=== PATIENT | male | born 1950 | race African-American/Black ===

== ENCOUNTER 2017-02-03 18:10 | Inpatient (IN) | payer MEDICARE, OTHER ==
[~2017-02-03] VITALS: Ht 170.2 cm; Wt 64.4 kg
[2017-02-03] VITALS (7 sets, daily range): BP systolic 121–142; BP diastolic 58–70; BMI 22.3
--- NOTE | ~2017-02-03 | CN ---
PATIENT NAME:ALIYA HEMPHILL MEDICAL RECORD: [id number] : 46 LOCATION:D.MS [id number] ADMIT DATE: 02/03/17 ACCOUNT: [id number] CONSULTING PHYSICIAN: MCKENZIE YORK MD REFERRING PHYSICIAN: TELLO PRO MD DATE OF CONSULTATION: 02/04/2017 Gastroenterology Consultation REFERRING PHYSICIAN: Nikolay Carranza DO HISTORY OF PRESENT ILLNESS: The patient is a 66-year-old black male with a history of severe peripheral vascular disease, status post recent PTCA with stent placement in November of this year on Effient and aspirin, who basically was admitted with acute hematochezia and [id number]-lmypkrv anemia with hematocrit just dropping down to 24 on admission. His baseline hematocrit is around 30-32. He has seen Dr. Do for years for chronic anemia. I actually saw this man for anemia issues back a couple years ago as well. His endoscopy workup a couple of years ago included an EGD, which was normal and a colonoscopy which was also normal, other than a diminutive polyp, which was removed. He had another EGD a little before that that revealed grade II esophagitis, possibly due to reflux disease. I have not seen him since. The patient denies any abdominal pain, has not had any further bleeding. PAST MEDICAL HISTORY: As above. He also has COPD, diabetes, depression, BPH, and hypertension. PAST SURGICAL HISTORY: Remarkable for PTCA with multiple stent placements in his legs. He also has had a TURP and his endoscopy as noted above. He has also had back surgery. HOME MEDICATIONS: Include lisinopril, aspirin 325 mg daily, HCTZ, Protonix 40 mg daily, Effient, iron sulfate, DiaBeta, Glucophage, Lasix, Cymbalta, Lopressor, Remeron, Carafate and [place]. REVIEW OF SYSTEMS: Noncontributory other than in the HPI. SOCIAL HISTORY: The patient is a longtime smoker. Denies alcohol use. PHYSICAL EXAMINATION: GENERAL: Reveals an elderly white male, in no acute distress. VITAL SIGNS: Stable, afebrile. CHEST: Clear. HEART: Regular rate and rhythm. ABDOMEN: Soft, nontender. EXTREMITIES: No edema. LABORATORY DATA: Reveals a hematocrit of 24, he has been transfused up to a hematocrit of 31. BUN is 29 and creatinine 1.6. Electrolytes are normal. Platelet count is normal. Liver enzymes are normal. INR is normal. IMPRESSION: Acute hematochezia, most likely due to his Effient and aspirin use. Again, he had a normal colonoscopy for the same reason about 2-1/2 years ago as noted above. CONSULT REPORT [id number] ALIYA HEMPHILL RECOMMENDATION: 1. Obviously, hold his aspirin and Effient for now. 2. Colonoscopy in a.m. 3. Assuming his colonoscopy was unremarkable, I will probably stop his aspirin indefinitely and try to continue Effient. TRANSINT:[id number] Voice Confirmation ID: [id number] DOCUMENT ID: [id number] MCKENZIE YORK MD CC: NIKOLAY CARRANZA DO [id number] DICTATION DATE: 02/05/17 114 ROUGHER MACHINE OPERATOR: 02/05/172049 DIS IN 02/05/17 [facility] [address] [place] [address]
--- NOTE | ~2017-02-03 | PRO ---
PATIENT:ALIYA HEMPHILL MEDICAL RECORD: [id number] : 46 LOCATION:D.MS Mathew221[facility]mina ADMISSION DATE: 02/03/17 PROCEDURE PERFORMED BY: MCKENZIE HENDRIX MD DATE OF PROCEDURE: 02/05/2017 STONE CRUSHER OPERATOR: Mckenzie Hendrix M.D. PROCEDURE: Colonoscopy with ileoscopy. INDICATION: The patient is a 66-year-old black male with a history of severe peripheral vascular disease, status post multiple PTCA with stent placement in his lower extremities as well as a history of chronic anemia, who basically was admitted with one episode of acute hematochezia but ____. He has not had any recurrent bleedings. His baseline hematocrit was around 30. His hematocrit on admission was 24. He has had 2 units of blood and his hematocrit is now 31. He has had both an upper and lower endoscopy about 2 years ago, both of which were essentially unremarkable. He is now for repeat colonoscopy. PREMEDICATION: Taper anesthesia. INSTRUMENT: Olympus video adjustable colonoscope. FINDINGS: Rectal exam was normal. The colonoscope was passed through the rectum into the cecum/terminal ileum without much difficulty. Prep was good. The exam was completely normal with no signs of bleeding whatsoever. He had no polyp or lesions, mass lesions, diverticular disease, AVMs or hemorrhoids noted. There was not 1 drop of blood seen during this entire exam. Small amount of stool was seen and was light brown. The patient tolerated the procedure well without any complication. IMPRESSION: 1. Normal colonoscopy and ileoscopy. 2. Hematochezia of unclear etiology, but most likely due to just his Effient and aspirin use. RECOMMENDATIONS: 1. Stop aspirin indefinitely. 2. Probably okay to restart Effient and his regular diet and okay for discharge planning by me. TRANSINT:[id number] Voice Confirmation ID: [id number] DOCUMENT ID: [id number] MCKENZIE HENDRIX MD CC: DRAKE BEAULIEU MD and NIKOLAY CARRANZA DO [id number] DICTATION DATE: 02/05/17 1150 SURVEY SUPERVISOR: 02/06/17 0259 DIS IN 02/05/17 [place] [address]
--- NOTE | 2017-02-03 19:00 | NUR ---
PT ARRIVED ON UNIT VIA WHEELCHAIR, ESCORTED BY ADMISSIONS STAFF AND SPOUSE.
[2017-02-03] MEDS ORDERED: LOPRESSOR25 MG PO (19:41)
[2017-02-03] MEDS ORDERED: REMERON45 MG PO (19:43)
[2017-02-03] MEDS ORDERED: CYMBALTA30 MG PO (19:44)
[2017-02-03] MEDS ORDERED: HCTZ25 MG PO (19:44)
[2017-02-03] MEDS ORDERED: GLYBURIDE2.5 MG PO (19:45)
[2017-02-03] MEDS ORDERED: HYDROCODONE-APA1 TAB PO (19:45)
[2017-02-03] MEDS ORDERED: GLUCOPHAGE1000 MG PO (19:46)
[2017-02-03] MEDS ORDERED: OMEPRAZOLE20 M1 PO (19:46)
[2017-02-03] MEDS ORDERED: CARAFATE1 G PO (19:47)
[2017-02-03] MEDS ORDERED: EFFIENT5 MG PO (19:48)
[2017-02-03] MEDS ORDERED: FERROUS SULFAT325 MG PO (19:48)
[2017-02-03] MEDS ORDERED: ASPIRIN325 MG PO (19:49)
[2017-02-03 20:10] LABS: BASOPHILS 0.7 % (0.0-2.0); EOSINOPHILS 4.1 % (0-7); HEMATOCRIT 24.2 % (42.0-54.0); HEMOGLOBIN 7.8 g/dL (13.5-17.5); IMMATURE GRANULOCYTES 0.2 % (0-5); LYMPHOCYTES 31.6 % (15-50); MCH 28.6 pg (26.0-34.0); MCHC 32.2 g/dL (31.0-37.0); MCV 88.6 fL (80.0-100.0); MEAN PLATELET VOLUME 10.2 fL (7.4-10.4); MONOCYTES 6.6 % (2-11); NEUTROPHILS 56.8 % (40-80); RBC 2.73 10x6/uL (4.20-6.10); RDW 14.3 % (11.5-14.5); WBC 5.6 10x3/uL (4.8-10.8)
[2017-02-03 20:36] LABS: ALBUMIN 3.3 g/dL (3.4-5.0); ANION GAP 16.7 mmol/L (8-16); BILIRUBIN - TOTAL 0.17 mg/dL (0.2-1.3); CALCIUM 8.9 mg/dL (8.5-10.1); CARBON DIOXIDE 22.6 mmol/L (21.0-32.0); CREATININE - SERUM 2.1 mg/dL (0.6-1.3); POTASSIUM - SERUM 5.3 mmol/L (3.5-5.1); PROTEIN - SERUM 6.3 g/dL (6.4-8.2)
[2017-02-03 20:45] LABS: PLATELET COUNT 219 10x3/uL (130-400)
--- NOTE | 2017-02-03 21:11 | NUR ---
HS MEDICATIONS GIVEN. WILL CONTINUE TO MONITOR FOR NEEDS.
--- NOTE | 2017-02-03 23:39 | NUR ---
RECEIVED PT AT SHIFT CHANGE FROM ADMISSION DIRECT ADMIT. POSITIONED IN BED FOR COMFORT AND ORIENTED TO CALL LIGHT. 20 GUAGE IV STARTED IN RIGHT FA. ADMISSION ASSESSMENT COMPLETE PER FLOW SHEET. HOME MEDS ADDRESSED AND ORDERED BY DR PRO. CONSENT FOR BLOOD TRANSFUSION OBTAINED AND WITNESSED. STARTED FIRST OF 2 UNITS...VITALS STABLE AND PT IS AFEBRILE. RESTING QUIETLY WITH EYES CLOSED AT THIS ASSESSMENT. WILL CONTINUE TO MONITOR FOR NEEDS.
[2017-02-04] VITALS (13 sets, daily range): BP systolic 117–156; BP diastolic 59–76; Ht 170.2 cm; Wt 64.4 kg
--- NOTE | 2017-02-04 04:00 | NUR ---
2ND UNIT OF PRBC'S COMPLETE. VITALS REMAIN STABLE AND PT IS AFEBRILE.
[2017-02-04 06:10] LABS: BASOPHILS 0.6 % (0.0-2.0); EOSINOPHILS 4.4 % (0-7); IMMATURE GRANULOCYTES 0.2 % (0-5); LYMPHOCYTES 29.8 % (15-50); MCH 27.2 pg (26.0-34.0); MCHC 31.6 g/dL (31.0-37.0); MEAN PLATELET VOLUME 10.6 fL (7.4-10.4); MONOCYTES 11.2 % (2-11); NEUTROPHILS 53.8 % (40-80); PLATELET COUNT 203 10x3/uL (130-400); RDW 15.3 % (11.5-14.5); WBC 5.2 10x3/uL (4.8-10.8)
[2017-02-04 06:30] LABS: ANION GAP 12.5 mmol/L (8-16); CALCIUM 9.1 mg/dL (8.5-10.1); CARBON DIOXIDE 24.3 mmol/L (21.0-32.0); CREATININE - SERUM 1.6 mg/dL (0.6-1.3); POTASSIUM - SERUM 4.8 mmol/L (3.5-5.1)
[2017-02-04 06:38] LABS: HEMATOCRIT 31.3 % (42.0-54.0); HEMOGLOBIN 9.9 g/dL (13.5-17.5); RBC 3.64 10x6/uL (4.20-6.10)
[2017-02-04] MEDS ORDERED: BAYER CHEWABLE81 MG PO (10:14)
[2017-02-04] MEDS ORDERED: PRINIVIL20 MG PO (10:19)
--- NOTE | 2017-02-04 14:04 | NUR ---
Patient Name: ALIYA HEMPHILL Admission Status: Elective Accout number: [id number] Admission Date: 02-03-2017 : 1950 Admission Diagnosis: Attending: RACHEL Current LOS: 1 Anticipated DC Date: 02-08-2017 Planned Disposition: Home Primary Insurance: MEDICARE A & B Discharge Planning Comments: CM MET WITH PATIENT REGARDING D/C NEEDS AND PLANS. PATIENT STATED HE LIVES WITH HIS SPOUSE (FRANCESCA) AND SHE WILL DRIVE HIM HOME AT DISCHARGE. PATIENT STATED HE HAS NO STEPS TO ENTER HOME BUT HAS 2 SMALL STEPS W/O RAILS IN HOME. PATIENTS PCP IS DR. ORTEGA AND USES [facility] ON [address] FOR HIS PHARMACY. PATIENT IS INDEPENDENT WITH HIS CARE AND HAS A WALKER, CANE, NEBULIZER AND GLUCOMETER (CKS 2X A DAY). PATIENT STATED HE HAS NEVER HAD HOME HEALTH AND DOES NOT WANT IT AT DISCHARGE. CM WILL CONTINUE TO FOLLOW PATIENT WITH D/C NEEDS AND PLANS. PCP DR. SHANNON CASSIDY ON [address] [phone] FRANCESCA () [phone] Wreath Maker: Tricia Astudillo Is the patient Alert and Oriented? Yes 0 * How many steps to enter\exit or inside your home? 2 W/O RAIL 0 * PCP DR. ORTEGA 0 * Pharmacy [address] [facility] 0 * Preadmission Environment Home with Family 0 * ADLs Independent 0 * Equipment Cane Glucometer Nebulizer Walker 0 * List name and contact numbers for known caregivers / representatives who currently or will assist patient after discharge: FRANCESCA () [phone] 0 * Community resources currently utilized None 0 * Additional services required to return to the preadmission environment? Yes 0 * Can the patient safely return to the preadmission environment? Yes 0 * Has this patient been hospitalized within the prior 30 days at any hospital? No 0 Grand Total: 0
--- NOTE | 2017-02-04 14:53 | NUR ---
CALLED 'S OFFICE SPOKE WITH HIS NURSE, LEFT A MESSAGE WITH HER TO HAVE HIM CALL.
--- NOTE | 2017-02-04 19:53 | NUR ---
GO MEAGAN STARTED. TEACHING ABOUT CLEANING OUT FOR AM COLONOSCOPY. NPO AFTER MIDNIGHT.
--- NOTE | 2017-02-04 21:25 | NUR ---
PT CONSENTED FOR AM COLONOSCOPY W/ TIVA. GO-LYTELY ADMINISTRATION IN PROGRESS
--- NOTE | 2017-02-05 | NUR ---
NPO STATUS BEGINS NOW. PT CONSUMED APPROX 2000 ML OF GO LYTELY AND HAS HAD 10+ LIQUID STOOLS SINCE BEGINNING.
--- NOTE | 2017-02-05 01:20 | NUR ---
RECIEVED REPORT AND ASSUMED PT CARE. PT HAS NO NEEDS AT THIS TIME. WILL MONITOR. SIDE RAILS ARE UP X 2. BED IS IN LOWEST POSITION. CALL LIGHT IS WITHIN REACH.
[2017-02-05 05:46] LABS: BASOPHILS 0.6 % (0.0-2.0); EOSINOPHILS 5.2 % (0-7); HEMATOCRIT 32.4 % (42.0-54.0); HEMOGLOBIN 10.3 g/dL (13.5-17.5); IMMATURE GRANULOCYTES 0.2 % (0-5); LYMPHOCYTES 32.7 % (15-50); MCH 27.2 pg (26.0-34.0); MCHC 31.8 g/dL (31.0-37.0); MCV 85.7 fL (80.0-100.0); MONOCYTES 8.3 % (2-11); PLATELET COUNT 185 10x3/uL (130-400); RBC 3.78 10x6/uL (4.20-6.10); RDW 15.8 % (11.5-14.5); WBC 5.2 10x3/uL (4.8-10.8)
[2017-02-05 06:14] LABS: ALBUMIN 2.9 g/dL (3.4-5.0); ANION GAP 12.2 mmol/L (8-16); BILIRUBIN - TOTAL 0.3 mg/dL (0.2-1.3); CREATININE - SERUM 1.3 mg/dL (0.6-1.3); MAGNESIUM - SERUM 1.6 mg/dL (1.8-2.4); POTASSIUM - SERUM 4.2 mmol/L (3.5-5.1)
--- NOTE | 2017-02-05 07:00 | NUR ---
REPORT RECEIVED FROM MAIL ORDER BILLER NURSE. CALL LIGHT IN REACH.
--- NOTE | 2017-02-05 07:55 | NUR ---
PATIENT IN LOW ARTEAGA POSITION RESTING QUIETLY. RESPIRATIONS EVEN AND UNLABORED. SIDE RAILS UP X2. BED IN LOW POSITION. CALL LIGHT IN REACH.
[2017-02-05 08:03] VITALS: BP 155/70
--- NOTE | 2017-02-05 08:45 | NUR ---
ASSESSMENT COMPLETED. BLOOD PRESSURE MEDS AND MAG OXIDE ADMINISTERED WITH SIP OF WATER. PASSWORD, EMERGENCY CONTACT INFO, AND PHARMACY OBTAINED AND PUT IN COMPUTER. REFUSES SCDs AT THIS TIME. WILL COME BACK AND START ENEMAS UNTIL CLEAR. CALL LIGHT IN REACH. WILL CONTINUE WITH PLAN OF CARE.
--- NOTE | 2017-02-05 09:15 | NUR ---
ENEMA ADMINISTERED PER ORDER. LIGHT GREEN LOOSE STOOL NOTED AFTERWARDS.
--- NOTE | 2017-02-05 10:40 | NUR ---
2ND ENEMA ADMINISTERED. STOOL IS NOW LIGHT YELLOW AND LOOSE WITH NO FORMED STOOL. JEWELRY TAKEN OFF AND GIVEN TO . HOSPITAL GOWN PUT ON.
--- NOTE | 2017-02-05 11:08 | NUR ---
TO GI LAB VIA BED.
--- NOTE | 2017-02-05 12:45 | NUR ---
RECEIVED BACK TO ROOM 2213 FROM GI LAB VIA BED. REGULAR DIET TRAY GIVEN TO PATIENT.
[2017-02-05] MEDS ORDERED: NICODERM C1 PATCH .2 TRANSDERM (13:48)
[2017-02-05] MEDS ORDERED: OMEPRAZOLE20 M1 PO (13:50)
--- NOTE | 2017-02-05 14:19 | NUR ---
EXPLAINED TO PATIENT AND THAT WE ARE WAITING ON DR. ECKERT'S RECOMMENDATIONS FOR BLOOD THINNERS. VERBALIZED UNDERSTANDING.
--- NOTE | 2017-02-05 16:05 | NUR ---
IV DC'D WITH TIP INTACT. DC INSTRUCTIONS EXPLAINED THOROUGHLY TO PATIENT. VERBALIZED UNDERSTANDING.
--- NOTE | 2017-02-05 16:15 | NUR ---
DC'D TO VEHICLE VIA WC WITH .
== END 2017-02-05 16:15 | disposition home or self-care (01) | DRG 378 ==
LOC: D.MS 18:10
PROVIDERS: Internal Medicine Gastroenterology; ADMIT Family Medicine
PROC: 0DJD8ZZ Inspection of Lower Intestinal Tract, Via Natural or Artificial Opening Endoscopic (ICD-10-PCS; principal; 2017-02-05 11:00)
DX: K92.1 Melena (principal); N17.9 Acute kidney failure, unspecified; F17.203 Nicotine dependence unspecified, with withdrawal; D64.9 Anemia, unspecified; E11.65 Type 2 diabetes mellitus with hyperglycemia; K21.9 Gastro-esophageal reflux disease without esophagitis; T45.525A Adverse effect of antithrombotic drugs, initial encounter; T39.015A Adverse effect of aspirin, initial encounter

== ENCOUNTER → 2019-03-14 11:38 | Outpatient (CLI) | payer MEDICARE, OTHER ==
[2017-02-04 11:05] VITALS: BMI 22.2
[~2019-03-14 11:38] MED LIST: ASPIRIN325 MG PO; BAYER CHEWABLE81 MG PO; CARAFATE1 G PO; CYMBALTA30 MG PO; EFFIENT5 MG PO; FERROUS SULFAT325 MG PO; GLUCOPHAGE1000 MG PO; GLYBURIDE2.5 MG PO; HCTZ25 MG PO; HYDROCODONE-APA1 TAB PO; LOPRESSOR25 MG PO; NICODERM C1 PATCH .2 TRANSDERM; OMEPRAZOLE20 M1 PO; PRINIVIL20 MG PO; REMERON45 MG PO
[2019-03-14 13:45] LABS: BASOPHILS 0.3 % (0-2); HEMATOCRIT 27.8 % (42.0-54.0); HEMOGLOBIN 8.8 g/dL (13.5-17.5); IMMATURE GRANULOCYTES 0.2 % (0-5); MCH 27.1 pg (26.0-34.0); MCHC 31.7 g/dL (31.0-37.0); MCV 85.5 fL (80.0-100.0); MEAN PLATELET VOLUME 10.5 fL (7.4-10.4); MONOCYTES 11.9 % (2-11); NEUTROPHILS 55.6 % (40-80); PLATELET COUNT 223 10x3/uL (130-400); RBC 3.25 10x6/uL (4.20-6.10); RDW 14.4 % (11.5-14.5); WBC 6.1 10x3/uL (4.8-10.8)
== END | disposition home or self-care (01) ==
LOC: D.LABREF 11:38
PROVIDERS: ATTEND Legal Medicine
DX: D64.9 Anemia, unspecified (principal)

== ENCOUNTER 2019-06-27 09:20 | Outpatient (CLI) | payer MEDICARE, OTHER ==
[~2019-06-27] VITALS: Ht 170.2 cm; Wt 62.3 kg
[2019-06-27 10:14] VITALS: BP 151/68; Ht 170.2 cm; Wt 62.3 kg
--- NOTE | 2019-06-27 17:09 | NUR ---
1515 IV REMOVED PRESSURE HELD AND DRESSING APPLIED. POST TRANSFUSION INSTRUCTIONS GIVEN TO PT AND FAMILY
== END 2019-06-27 15:30 | disposition home or self-care (01) ==
LOC: D.OPS 09:20
PROVIDERS: ATTEND Family Medicine
DX: D50.9 Iron deficiency anemia, unspecified (principal)

== ENCOUNTER → 2019-07-25 08:51 | Outpatient (CLI) | payer MEDICARE, OTHER ==
[2019-06-27 10:14] VITALS: BMI 21.5
== END | disposition home or self-care (01) ==
LOC: D.CT 07-13 09:00
PROVIDERS: ATTEND Nurse Practitioner Family
DX: I73.89 Other specified peripheral vascular diseases (principal)

== ENCOUNTER → 2019-08-18 11:05 | Outpatient (CLI) | payer MEDICARE, OTHER ==
[2019-06-27 10:14] VITALS: BMI 21.5
== END | disposition home or self-care (01) ==
LOC: D.US 11:05
PROVIDERS: ATTEND Internal Medicine Cardiovascular Disease
DX: I65.23 Occlusion and stenosis of bilateral carotid arteries (principal)

== ENCOUNTER → 2019-10-24 10:56 | Outpatient (CLI) | payer MEDICARE, OTHER ==
[2019-06-27 10:14] VITALS: BMI 21.5
[2019-10-24 11:09] LABS: BASOPHILS 0.1 % (0-2); EOSINOPHILS 2.4 % (0-7); HEMATOCRIT 31.2 % (42.0-54.0); HEMOGLOBIN 9.7 g/dL (13.5-17.5); IMMATURE GRANULOCYTES 0.2 % (0-5); LYMPHOCYTES 13.6 % (15-50); MCH 27.4 pg (26.0-34.0); MCHC 31.1 g/dL (31.0-37.0); MCV 88.1 fL (80.0-100.0); MEAN PLATELET VOLUME 9.6 fL (7.4-10.4); MONOCYTES 11.1 % (2-11); NEUTROPHILS 72.6 % (40-80); PLATELET COUNT 334 10x3/uL (130-400); RBC 3.54 10x6/uL (4.20-6.10); RDW 15.3 % (11.5-14.5); WBC 8.2 10x3/uL (4.8-10.8)
== END | disposition home or self-care (01) ==
LOC: D.LABREF 10:56
PROVIDERS: ATTEND Legal Medicine
DX: D46.0 Refractory anemia without ring sideroblasts, so stated (principal)

== ENCOUNTER → 2019-12-26 09:54 | Outpatient (CLI) | payer MEDICARE, OTHER ==
[2019-06-27 10:14] VITALS: BMI 21.5
[2019-12-26 10:03] LABS: HEMATOCRIT 28.1 % (42.0-54.0); HEMOGLOBIN 8.7 g/dL (13.5-17.5); RBC 3.41 10x6/uL (4.20-6.10)
[2019-12-26 10:04] LABS: MCH 25.5 pg (26.0-34.0); MCV 82.4 fL (80.0-100.0); MEAN PLATELET VOLUME 9.7 fL (7.4-10.4); NEUTROPHILS 62.9 % (40-80); PLATELET COUNT 270 10x3/uL (130-400); RDW 16.2 % (11.5-14.5)
[2019-12-26 10:05] LABS: BASOPHILS 0.4 % (0-2); EOSINOPHILS 2.6 % (0-7); IMMATURE GRANULOCYTES 0.3 % (0-5); LYMPHOCYTES 21.9 % (15-50); MONOCYTES 11.9 % (2-11)
== END | disposition home or self-care (01) ==
LOC: D.LABREF 09:54
PROVIDERS: ATTEND Legal Medicine
DX: D46.0 Refractory anemia without ring sideroblasts, so stated (principal)